=== PATIENT | male | born 1965 | race Caucasian/White ===

== ENCOUNTER 2017-12-09 22:39 | Emergency (ER) | payer BC ==
[2017-12-09 23:32] LABS: ABSOLUTE EOSINOPHILS # (AUTO) 0.2 10^3/uL (0.0-0.6); ABSOLUTE LYMPHOCYTES (AUTO) 4.4 10^3/uL (0.5-4.7); ABSOLUTE MONOCYTES (AUTO) 1.3 10^3/uL (0.1-1.4); ABSOLUTE NEUT (AUTO) 4.4 10^3/uL (1.7-8.2); BASOPHILS % (AUTO) 0.5 % (0-2); EOSINOPHILS % (AUTO) 2.1 % (0-6); HEMATOCRIT 46.5 % (37.9-51.0); HEMOGLOBIN 15.9 g/dL (13.5-17.0); LYMPHOCYTES % (AUTO) 42.3 % (13-45); MEAN CORPUSCULAR HEMOGLOBIN 32.5 pg (27.0-33.4); MEAN CORPUSCULAR HGB CONC 34.3 g/dL (32.0-36.0); MEAN CORPUSCULAR VOLUME 95 fl (80-97); MONOCYTES % (AUTO) 12.7 % (3-13); PLATELET COUNT 243 10^3/uL (150-450); RED CELL DISTRIBUTION WIDTH 12.9 % (11.5-14.0); SEGMENTED NEUTROPHILS % (AUTO) 42.4 % (42-78); TOTAL CELLS COUNTED % (AUTO) 100 %; WHITE BLOOD COUNT 10.3 10^3/uL (4.0-10.5)
[2017-12-09 23:38] LABS: ANION GAP 11 (5-19); BLOOD UREA NITROGEN 11 mg/dL (7-20); CALCIUM 9.5 mg/dL (8.4-10.2); CARBON DIOXIDE 26 mmol/L (22-30); CHLORIDE 106 mmol/L (98-107); GLUCOSE 106 mg/dL (75-110); POTASSIUM 3.9 mmol/L (3.6-5.0); SODIUM 143.2 mmol/L (137-145)
--- NOTE | 2017-12-09 23:55 | EKG REPORT ---
SEVERITY:- ABNORMAL ECG - ATRIAL-SENSED VENTRICULAR-PACED RHYTHM : Confirmed by: Janessa Lebron 09-Dec-2017 23:54:13
--- NOTE | 2017-12-10 01:11 | RADIOLOGY REPORT (SQ) ---
EXAM DESCRIPTION: CHEST SINGLE VIEW CLINICAL HISTORY: cp COMPARISON: None. FINDINGS: Single frontal view of the chest. Left-sided pacemaker. The cardiomediastinal silhouette has normal size and contour. No consolidation, pneumothorax, or pleural effusion. No displaced rib fractures identified. Upper abdominal soft tissues are unremarkable. IMPRESSION: 1. No acute pulmonary process identified.
[2017-12-10] MEDS ORDERED: IBUPROFEN 600 MG TABLET PO ONE (01:32)
[2017-12-10] MEDS ORDERED: LIDOCAINE 5% (700 MG) TRANSDERMAL ADH..PATCH TP ONE (01:32)
--- NOTE | 2017-12-10 01:59 | ER Document Report ---
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 He describes it as an intermittent, stabbing, moderate to severe pain. He notes that turning his head towards the left worsens the pain. He has not tried any to improve pain. He has not seen his general doctor regarding this concern. He denies any associated chest pain , shortness of breath, nausea, vomiting or syncope. No trauma to the affected area. TRAVEL OUTSIDE OF THE [place] IN LAST 30 DAYS: No - Related Data Allergies/Adverse Reactions: No Known Allergies Allergy (Unverified 03/12/14 19:43) Past Medical History - General Information source: Patient - Social History Smoking Status: Never Smoker Frequency of alcohol use: Occasional Drug Abuse: None Lives with: Spouse/Significant other Family History: Reviewed & Not Pertinent Patient has suicidal ideation: No Patient has homicidal ideation: No - Past Medical History Cardiac Medical History: Reports: Hx Hypertension Renal/ Medical History: Denies: Hx Peritoneal Dialysis GI Medical History: Comment Only: Hx Gastroesophageal Reflux Disease - SOMETIMES Psychiatric Medical History: Reports: Hx Anxiety Comment Only: Hx Depression - MILD Past Surgical History: Comment Only: Hx Cardiac Surgery - YES, 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 HENT: Negative for sore throat. Eyes: Negative for visual changes. Cardiovascular: Negative for chest pain. Respiratory: Negative for shortness of breath. Gastrointestinal: Negative for abdominal pain, vomiting or diarrhea. Genitourinary: Negative for dysuria. Musculoskeletal: Positive for left shoulder and periscapular pain Skin: Negative for rash. Neurological: Negative for headaches, weakness or numbness. 10 point ROS negative except as marked above and in HPI. Physical Exam - Vital signs Vitals: Resp Pulse Ox 18 97 12/09/17 22:59 12/09/17 22:59 Interpretation: Normal Notes: PHYSICAL EXAMINATION: GENERAL: Well-appearing, well-nourished and in no acute distress. HEAD: Atraumatic, normocephalic. EYES: Pupils equal round and reactive to light, extraocular movements intact, sclera anicteric, conjunctiva are normal. ENT: nares patent, oropharynx clear without exudates. Moist mucous membranes. NECK: Normal range of motion, supple without lymphadenopathy there is pain on axial loading of the neck with the head tilted towards the left LUNGS: Breath sounds clear to auscultation bilaterally and equal. No wheezes rales or rhonchi. HEART: Regular rate and rhythm without murmurs ABDOMEN: Soft, nontender, normoactive bowel sounds. No guarding, no rebound. No masses appreciated. EXTREMITIES: Normal range of motion, no pitting or edema. No cyanosis. NEUROLOGICAL: No focal neurological deficits. Moves all extremities spontaneously and on command. PSYCH: Normal mood, normal affect. SKIN: Warm, Dry, normal turgor, no rashes or lesions noted. Course - Re-evaluation Re-evalutation: 12/10/17 01:56 Presentation of left arm and periscapular pain in an otherwise well appearing patient. Low clinical suspicion for ACS given clinical history, exam, EKG without ST elevations or depressions, and negative initial troponin. HEART score less than or equal to 3. PE also seems unlikely given clinical history, absence of tachycardia or dyspnea. Well's score is 0. CXR without evidence of pneumothorax or pneumonia. No widened mediastinum. Aortic dissection also seems unlikely given history, symmetric pulses, CXR, and vitals. Delta troponin is also negative. Patient's clinical history is most consistent with a C 6-7 nerve root impingement. Patient has pain with axial loading of the head when tilted towards the left also gives a history of approximately 6 months of pain with turning his head towards the left side. His characterization of paresthesias in the upper extremity on the left as well as periscapular pain and trapezius pain is likewise very consistent with this syndrome and would be highly atypical for ACS particularly given the recurrent nature of his symptoms. I recommended NSAID therapy, topical lidocaine, physical therapy, and outpatient follow-up. At this time will discharge with return precautions and follow-up recommendations. Verbal discharge instructions given a the bedside and opportunity for questions given. Medication warnings reviewed. Patient is in agreement with this plan and has verbalized understanding of return precautions and the need for primary care follow-up in the next 24-72 hours. - Vital Signs Vital signs: Temp Pulse Resp BP Pulse Ox 18 139/80 H 95 12/10/17 02:01 12/10/17 02:01 12/10/17 02:01 - Laboratory Result Diagrams: 12/09/17 23:14 12/09/17 23:14 - Diagnostic Test Radiology reviewed: Image reviewed, Reports reviewed Radiology results interpreted by me: 12/10/17 01:57 Chest x-ray: No acute infiltrate or pneumothorax - EKG Interpretation by Me Additional EKG results interpreted by me: 12/10/17 01:57 Atrial sensed ventricular paced rhythm at 71. Discharge - Discharge Clinical Impression: Cervical nerve root impingement, Left upper limb pain, Pain of left scapula Condition: Good Disposition: HOME, SELF-CARE Additional Instructions: Your pain is related to impingement one of your cervical nerve roots and will take 6-8 weeks completely resolved. For your pain: Take ibuprofen 600 mg and acetaminophen 1000 mg every 6 hours together as needed for pain. In addition to this, purchased the product that is sold [id number] cold Aspercreme with lidocaine. Apply to the affected area per bottle instructions. You should also apply heat to the area regularly using an electric heating plant pad. Return to the emergency department immediately if you develop weakness, loss of sensation, chest pain, shortness of breath, have worsening of your symptoms, or any other symptoms that are worrisome to you. Please also discussed with her primary care doctor about consideration of physical therapy referral for this ongoing issue. Please also follow-up regarding your blood pressure today. Your cardiac markers are normal as is your EKG. Your history today does not suggest that the source of your pain is related to your heart.
[2017-12-10] MEDS ORDERED: ACETAMINOPHEN 325 MG TABLET PO ONE (02:00)
[2017-12-10 03:37] VITALS: BP 134/82
== END 2017-12-10 03:30 | disposition home or self-care (01) ==
LOC: ER 22:39
DX: M79.602 Pain in left arm (principal); M75.42 Impingement syndrome of left shoulder; I10 Essential (primary) hypertension
CPT/HCPCS: 36415; 71045; 80048; 84484; 85025; 93005; 93010; 99284

== ENCOUNTER 2018-01-21 08:01 | Day surgery (SDC) | payer BC ==
[2018-01-21 08:47] LABS: INTERNATIONAL RATION (INR) 0.85
[2018-01-21 08:48] LABS: PARTIAL THROMBOPLASTIN TIME 27.4 SEC (23.5-35.8)
--- NOTE | 2018-01-21 11:30 | RADIOLOGY REPORT (SQ) ---
EXAM DESCRIPTION: MYELOGRAM CERVICAL; CT CERVICAL SPINE WITH COMPLETED DATE/TIME: 01/21/2018 10:16 am; 01/21/2018 10:12 am REASON FOR STUDY: RADICULOPATHY CERVICAL REGION M54.12 RADICULOPATHY, CERVICAL REGION COMPARISON: None. TECHNIQUE: Myelography was discussed with the patient, and he agreed to the procedure. Under fluoroscopic localization, the right paracentral L3-4 level was localized. Skin marked. Timeout performed. After sterile skin prep and 3 mL of 1% local lidocaine for skin and deep tissue anesthesia, a 5 cm 22 gauge spinal needle was used to access the lumbar subarachnoid space via right paracentral approach at the L3-4 level. Prompt return of clear cerebrospinal fluid. At this point, 10mL ofIsovue-300contra st was injected into the thecal sac without complication. Needle withdrawn, Band-Aid applied. After performing cervical myelogram, axial images were acquired through the cervical spine without in travenous contrast. Images reviewed with lung, soft tissue and bone windows. Reconstructed coronal and sagittal MPR images reviewed. Images stored on PACS. All CT scanners at this facility use dose modulation, iterative reconstruction, and/or weight based d osing when appropriate to reduce radiation dose to as low as reasonably achievable (ALARA). [facility]: Dose Right [facility]: CareDose [facility]: Dose Right [facility]: Teradose 4D [facility]: Smart [employer] RADIATION DOSE: CT Rad equipment meets quality standard of care and radiation dose reduction techniq ues were employed. CTDIvol: 25.0 mGy. DLP: 684 mGy-cm. mGy. LIMITATIONS: Motion. FINDINGS: ALIGNMENT: Slight anterolisthesis of C3 relative to C4 MINERALIZATION: Normal. VERTEBRAL BODIES: No fractures or dislocation. DISCS: C1-C2: No significant spinal stenosis or exit foraminal stenosis. C2-C3: No significant spinal stenosis or exit foraminal stenosis. C3-C4: Mild spinal stenosis due disc osteophyte complex. Mild neural foraminal narrowing bilaterally . C4-C5: Mild spinal stenosis. Mild right neural foraminal narrowing. C5-C6: Mild spinal stenosis. Mild right and moderate left neural foraminal narrowing. C6-C7: Mild spinal stenosis. C7-T1: No significant spinal stenosis or exit foraminal stenosis. FACETS, LATERAL MASSES, POSTERIOR ELEMENTS: No fractures. No dislocation. No acute findings. VISUALIZED RIBS: No fractures. LUNG APICES AND SOFT TISSUES: No significant or acute findings. OTHER: No other significant finding. IMPRESSION: Mild spinal stenosis C3- 4 through C6-7. COMMENT: Patient medication list reviewed: Yes- Quality ID# [id number]:Eligible professional attests to doc umenting in the medical record they obtained, updated, or reviewed the patient's current medications. TECHNICAL DOCUMENTATION: JOB ID: [id number] Quality ID # [id number]: Final reports with documentation of one or more dose reduction techniques (e.g., Au tomated exposure control, adjustment of the mA and/or kV according to patient size, use of iterative reconstruction technique) 2010 [employer]- All Rights Reserved Reading location - IP/workstation name: [email or web address]
[2018-01-21 11:59] VITALS: BP 123/74
== END 2018-01-21 12:00 | disposition home or self-care (01) ==
LOC: RAD 08:01
PROVIDERS: ATTEND Orthopaedic Surgery
DX: M54.12 Radiculopathy, cervical region (principal); M54.2 Cervicalgia; E78.00 Pure hypercholesterolemia, unspecified; Z79.899 Other long term (current) drug therapy; Z79.1 Long term (current) use of non-steroidal anti-inflammatories (NSAID); I48.91 Unspecified atrial fibrillation; Z95.810 Presence of automatic (implantable) cardiac defibrillator
CPT/HCPCS: 36415; 72126; 72240; 85610; 85730

== ENCOUNTER 2018-06-25 09:41 | Emergency (ER) | payer BC ==
--- NOTE | 2018-06-25 10:19 | ER Document Report ---
ED Medical Screen (RME) - General Chief Complaint: Headache Stated Complaint: LIGHT HEADED/DIZZY Time Seen by Provider: 06/25/18 09:48 Notes: 53-year-old mother emergency department chief complaint of headache and almost passing out. Patient states he woke up this morning was doing okay. Began to have severe dizzy spell with numbness and tingling in his bilateral upper extremities followed by a severe headache. Has never had this happen before. Patient does have a cardiac history. Had an arrhythmia back in 1997 and had an ablation technique. Resulted in him having to have a pacemaker. He has never had a heart attack. Does not smoke. Denies any other major symptoms at this time. Headache is getting a little bit better after taking some Aleve at home. I have greeted and performed a rapid initial assessment of this patient. A comprehensive ED assessment and evaluation of the patient, analysis of test results and completion of the medical decision making process will be conducted by additional ED providers. TRAVEL OUTSIDE OF THE [place] 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 Psychiatric Medical History: Reports: Hx Anxiety Comment Only: Hx Depression - MILD Past Surgical History: Comment Only: Hx Cardiac Surgery - YES, 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, CARIDAC CATHERIZATIONS - Immunizations Hx Diphtheria, Pertussis, Tetanus Vaccination: No History of Influenza Vaccine for 07/2017 - 11/2017 Season: No Review of Systems - Review of Systems Notes: View of systems positive for the following: Headache, near syncope, numbness in the bilateral upper extremities Physical Exam - Vital signs Vitals: Temp Pulse BP Pulse Ox 97.4 F 57 L 146/78 H 96 06/25/18 09:45 06/25/18 09:45 06/25/18 09:45 06/25/18 09:45 - HEENT Head: Normocephalic, Atraumatic Eyes: Normal Pupils: PERRL Mucous membranes: Normal Pharynx: Normal Neck: Normal - Respiratory Respiratory status: No respiratory distress Chest status: Nontender Breath sounds: Normal Chest palpation: Normal - Cardiovascular Rhythm: Regular Heart sounds: Normal auscultation Murmur: No - Neurological Neuro grossly intact: Yes Cognition: Normal Orientation: AAOx4 [place] Coma Scale Eye Opening: Spontaneous [place] Coma Scale Verbal: Oriented [place] Coma Scale Motor: Obeys Commands [place] Coma Scale Total: 15 Speech: Normal Motor strength normal: LUE, RUE, LLE, RLE 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 No: Pronator drift, Weakness, Hemiplegia Sensory: Normal - Skin Skin Temperature: Warm Skin Moisture: Dry Skin Color: Normal Course - Vital Signs Vital signs: Temp Pulse Resp BP Pulse Ox 97.4 F 57 L 146/78 H 96 06/25/18 09:45 06/25/18 09:45 06/25/18 09:45 06/25/18 09:45
--- NOTE | 2018-06-25 11:25 | RADIOLOGY REPORT (SQ) ---
EXAM DESCRIPTION: CHEST SINGLE VIEW COMPLETED DATE/TIME: 06/25/2018 11:18 am REASON FOR STUDY: syncope COMPARISON: 10/06/2009 EXAM PARAMETERS: NUMBER OF VIEWS: One view. TECHNIQUE: Single frontal radiographic view of the chest acquired. RADIATION DOSE: NA LIMITATIONS: None. FINDINGS: LUNGS AND PLEURA: No opacities, masses or pneumothorax. No pleural effusion. MEDIASTINUM AND HILAR STRUCTURES: No masses. Contour normal. HEART AND VASCULAR STRUCTURES: Heart normal in size. Normal vasculature. BONES: No acute findings. HARDWARE: Cardiac pacemaker, unchanged finding. OTHER: No other significant finding. IMPRESSION: 1. No significant interval changes since the previous examination dated 10/06/2009. No a cute findings. TECHNICAL DOCUMENTATION: JOB ID: [id number] [employer]- All Rights Reserved Reading location - IP/workstation name: [email or web address]
[2018-06-25 11:26] LABS: ABSOLUTE BASOPHILS # (AUTO) 0.1 10^3/uL (0.0-0.2); ABSOLUTE EOSINOPHILS # (AUTO) 0.1 10^3/uL (0.0-0.6); ABSOLUTE LYMPHOCYTES (AUTO) 3.3 10^3/uL (0.5-4.7); ABSOLUTE MONOCYTES (AUTO) 1.1 10^3/uL (0.1-1.4); ABSOLUTE NEUT (AUTO) 5.8 10^3/uL (1.7-8.2); BASOPHILS % (AUTO) 0.6 % (0-2); EOSINOPHILS % (AUTO) 1.3 % (0-6); HEMATOCRIT 45.8 % (37.9-51.0); LYMPHOCYTES % (AUTO) 31.7 % (13-45); MEAN CORPUSCULAR HEMOGLOBIN 33.8 pg (27.0-33.4); MEAN CORPUSCULAR HGB CONC 34.9 g/dL (32.0-36.0); MEAN CORPUSCULAR VOLUME 97 fl (80-97); MONOCYTES % (AUTO) 10.4 % (3-13); PLATELET COUNT 260 10^3/uL (150-450); RED BLOOD COUNT 4.73 10^6/uL (4.35-5.55); TOTAL CELLS COUNTED % (AUTO) 100 %; WHITE BLOOD COUNT 10.3 10^3/uL (4.0-10.5)
--- NOTE | 2018-06-25 11:34 | RADIOLOGY REPORT (SQ) ---
EXAM DESCRIPTION: CT HEAD WITHOUT COMPLETED DATE/TIME: 06/25/2018 11:18 am REASON FOR STUDY: headache, near syncope COMPARISON: None. TECHNIQUE: Axial images acquired through the brain without intravenous contrast. Images reviewed wi th bone, brain and subdural windows. Additional sagittal and coronal reconstructions were generated. Images stored on PACS. All CT scanners at this facility use dose modulation, iterative reconstruction, and/or weight based d osing when appropriate to reduce radiation dose to as low as reasonably achievable (ALARA). [facility]: Dose Right [facility]: CareDose [facility]: Dose Right [facility]: Teradose 4D [facility]: Smart [employer] RADIATION DOSE: CT Rad equipment meets quality standard of care and radiation dose reduction techniq ues were employed. CTDIvol: 53.2 mGy. DLP: 1044 mGy-cm. LIMITATIONS: None. FINDINGS: VENTRICLES: Normal size and contour. The cisterns are patent. CEREBRUM: No masses. No hemorrhage. No midline shift. No evidence for acute infarction. Normal gra y/white matter differentiation. No areas of low density in the white matter. CEREBELLUM: No masses. No hemorrhage. No alteration of density. No evidence for acute infarction. EXTRAAXIAL SPACES: No fluid collections. No masses. ORBITS AND GLOBE: No intra- or extraconal masses. Normal contour of globe without masses. CALVARIUM: No fracture. PARANASAL SINUSES: Pneumatization of the clinoid process, normal anatomic variant. No fluid or muc osal thickening. SOFT TISSUES: No mass or hematoma. OTHER: No other significant finding. IMPRESSION: 1. No acute intracranial abnormality. EVIDENCE OF ACUTE STROKE: NO. COMMENT: Quality ID # [id number]: Final reports with documentation of one or more dose reduction techniques (e.g., Automated exposure control, adjustment of the mA and/or kV according to patient size, use of iterative reconstruction technique) TECHNICAL DOCUMENTATION: JOB ID: [id number] [employer]- All Rights Reserved Reading location - IP/workstation name: [email or web address]
[2018-06-25 11:50] LABS: ALANINE AMINOTRANSFERASE 27 U/L (21-72); ALBUMIN 4.4 g/dL (3.5-5.0); ALKALINE PHOSPHATASE 55 U/L (38-126); ANION GAP 7 (5-19); ASPARTATE AMINO TRANSFERASE 34 U/L (17-59); BILIRUBIN,DIRECT 0.5 mg/dL (0.0-0.4); BILIRUBIN,TOTAL 1.2 mg/dL (0.2-1.3); BLOOD UREA NITROGEN 12 mg/dL (7-20); CALCIUM 9.8 mg/dL (8.4-10.2); CARBON DIOXIDE 29 mmol/L (22-30); CHLORIDE 105 mmol/L (98-107); CREATINE KINASE 81 U/L (55-170); GLUCOSE 100 mg/dL (75-110); POTASSIUM 4.5 mmol/L (3.6-5.0); SODIUM 141.3 mmol/L (137-145); TOTAL PROTEIN 7.7 g/dL (6.3-8.2)
[2018-06-25 11:59] LABS: CREATINE KINASE MB 0.82 ng/mL (<4.55)
[2018-06-25 12:00] LABS: TROPONIN I < 0.012 ng/mL
[2018-06-25] MEDS ORDERED: NORMAL SALINE 1000 ML 1,000 ML IV ONE (13:25)
--- NOTE | 2018-06-25 14:53 | ER Document Report ---
ED General - General Chief Complaint: Headache Stated Complaint: LIGHT HEADED/DIZZY Time Seen by Provider: 06/25/18 09:48 Mode of Arrival: Ambulatory Information source: Patient Notes: Patient is a 53-year-old male who presents with chief complaint of weakness and near syncope earlier this morning. Patient reports that he has not had any recent illness. Patient denies any chest pain or abdominal pain. Patient states that he took Aleve for it after having the episode and reports that his symptoms have somewhat improved. TRAVEL OUTSIDE OF THE [place] IN LAST 30 DAYS: No - Related Data Allergies/Adverse Reactions: No Known Allergies Allergy (Verified 06/25/18 09:42) Past Medical History - General Information source: Patient - Social History Smoking Status: Never Smoker Frequency of alcohol use: Occasional Drug Abuse: None Lives with: Family Family History: Reviewed & Not Pertinent Patient has suicidal ideation: No Patient has homicidal ideation: No - Past Medical History Cardiac Medical History: Reports: Hx Hypertension Denies: Hx Coronary Artery Disease, Hx Heart Attack Pulmonary Medical History: Denies: Hx Asthma, Hx Bronchitis, Hx COPD, Hx Pneumonia Neurological Medical History: Denies: Hx Cerebrovascular Accident, Hx Seizures Renal/ Medical History: Denies: Hx Peritoneal Dialysis GI Medical History: Comment Only: Hx Gastroesophageal Reflux Disease - SOMETIMES Musculoskeletal Medical History: 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 Psychiatric Medical History: Reports: Hx Anxiety Comment Only: Hx Depression - MILD Past Surgical History: Comment Only: Hx 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 HEAD: Atraumatic, normocephalic. EYES: Pupils equal round and reactive to light, extraocular movements intact, sclera anicteric, conjunctiva are normal. ENT: Nares patent, oropharynx clear without exudates. Moist mucous membranes. NECK: Normal range of motion, supple without lymphadenopathy LUNGS: Breath sounds clear to auscultation bilaterally and equal. No wheezes rales or rhonchi. HEART: Regular rate and rhythm without murmurs ABDOMEN: Soft, nontender, nondistended abdomen. No guarding, no rebound. No masses appreciated. Musculoskeletal: Normal range of motion, no pitting or edema. No cyanosis. NEUROLOGICAL: Cranial nerves grossly intact. Normal speech, normal gait. Normal sensory, motor exams PSYCH: Normal mood, normal affect. SKIN: Warm, Dry, normal turgor, no rashes or lesions noted. Course - Re-evaluation Re-evalutation: Workup today is unremarkable to include CBC, comprehensive metabolic panel, cardiac panel, EKG, head CT and chest x-ray. Patient was observed for several hours and repeat troponin was also negative. Patient was given 1 L IV fluids and patient reports that he feels much improved after the administration of IV fluids. Patient's vital signs remained stable during his stay. Patient discharged home in stable condition with strict ED return precautions. - Vital Signs Vital signs: Temp Pulse Resp BP Pulse Ox 97.4 F 57 L 14 139/72 H 97 06/25/18 09:45 06/25/18 09:45 06/25/18 15:01 06/25/18 15:01 06/25/18 15:01 - Laboratory Result Diagrams: 06/25/18 11:09 06/25/18 11:09 Laboratory results interpreted by me: 06/25/18 06/25/18 11:09 11:09 [facility] 33.8 H Direct Bilirubin 0.5 H Discharge - Discharge Clinical Impression: Dizziness Condition: Stable Disposition: HOME, SELF-CARE Additional Instructions: Normal Exam and Workup At this time, your examination and workup show no significant abnormality. No significant abnormal physical findings are noted. All laboratory, EKG, and imaging (x-ray) studies that were ordered show no significant abnormality. Although your examination and all studies that were ordered showed no significant abnormal finding, there are no examinations and no studies that are 100% accurate. There is always the possibility that some abnormality could exist and not be detected with physical examination or within the limits and capabilities of laboratory and other studies. You should return or follow up as you were instructed on your visit today for further evaluation if your symptoms do not resolve. Intravenous (IV) Fluids As part of your care today, you received intravenous (IV) fluids. IV fluids are administered to patients who are dehydrated or to those who have certain chemical (electrolyte) abnormalities that need correcting. Your workup today was unremarkable. All laboratory studies, EKG and chest x -ray were okay and showed no signs of anything dangerous going on. Please return to the emergency department immediately if you develop worsening of your symptoms, develop chest pain, shortness of breath or any other symptom that is concerning to. Please follow-up with your primary care provider in the next 3- 5 days for a follow-up. Forms: Return to Work
[2018-06-25 15:07] VITALS: BP 139/72
--- NOTE | 2018-06-25 17:03 | EKG REPORT ---
SEVERITY:- ABNORMAL ECG - ATRIAL-SENSED VENTRICULAR-PACED RHYTHM : Confirmed by: Jennifer Serrano MD 25-Jun-2018 17:01:55
== END 2018-06-25 15:15 | disposition home or self-care (01) ==
LOC: ER 09:41
DX: R55 Syncope and collapse (principal); R53.1 Weakness; I10 Essential (primary) hypertension; Z95.0 Presence of cardiac pacemaker
CPT/HCPCS: 36415; 70450; 71045; 80053; 82550; 82553; 84484; 85025; 93005; 93010; 96360; 99285